=== PATIENT | female | born 1955 ===

== ENCOUNTER → 2018-12-15 18:53 | Outpatient (ROUT) | payer MEDICARE, MEDICAID, SELFPAY ==
[2018-12-15 20:08] LABS: Body Fluid Red Blood Cells 1783 /uL; Body Fluid Tot Nucleated Cells 132 /uL
[2018-12-15 20:43] LABS: Body Fluid Appearance CLEAR; Body Fluid Clotted? NO CLOTS PRESENT; Body Fluid Color YELLOW; Eosinophils Body Fluid 0 %; Mononuclear WBC Body Fluid 88 %; Other Cells Body Fluid 0 %; Polynuclear WBC Body Fluid 12 %
== END ==
PROVIDERS: Visit Provider Internal Medicine Rheumatology
DX: M06.09 Rheumatoid arthritis without rheumatoid factor, multiple sites (principal); M25.462 Effusion, left knee
CPT/HCPCS: 89051